=== PATIENT | female | born 1950 | race Caucasian/White ===

== ENCOUNTER 2020-06-10 09:17 | Inpatient (IN) | payer OTHER, MEDICARE ==
[~2020-06-10] VITALS: Ht 170.2 cm; Wt 77.1 kg
[2020-06-10 11:13] LABS: HEMOGLOBIN 15.7 gm/dl (12.3-15.3); RED BLOOD COUNT 5.04 M/UL (4.00-5.10); WHITE BLOOD COUNT 17.3 K/UL (4.5-11.0)
[2020-06-10 11:38] LABS: BUN/CREATININE RATIO 28 (0-10)
[2020-06-10] MEDS ORDERED: ELIQUIS5 MG PO (13:49)
[2020-06-10] MEDS ORDERED: CRESTOR5 MG PO (13:49)
[2020-06-10] MEDS ORDERED: AMBIEN CR12.5 MG PO (13:50)
[2020-06-10] MEDS ORDERED: HYDROCODON-ACE1 EAC1 PO (13:50)
[2020-06-10] MEDS ORDERED: PROZAC20 MG PO (13:51)
[2020-06-10] MEDS ORDERED: ZANAFLEX4 M1 PO (13:57)
[2020-06-11 05:34] LABS: HEMOGLOBIN 14.4 gm/dl (12.3-15.3); RED BLOOD COUNT 4.69 M/UL (4.00-5.10); WHITE BLOOD COUNT 15.5 K/UL (4.5-11.0)
[2020-06-11 05:56] LABS: BUN/CREATININE RATIO 35 (0-10)
[2020-06-12 06:18] LABS: HEMOGLOBIN 15.1 gm/dl (12.3-15.3); RED BLOOD COUNT 4.89 M/UL (4.00-5.10)
[2020-06-12 06:33] LABS: WHITE BLOOD COUNT 10.9 K/UL (4.5-11.0)
[2020-06-12 06:35] LABS: BUN/CREATININE RATIO 36 (0-10)
[2020-06-13 05:03] LABS: HEMOGLOBIN 15.2 gm/dl (12.3-15.3)
[2020-06-13 05:08] LABS: WHITE BLOOD COUNT 17.3 K/UL (4.5-11.0)
[2020-06-13 05:35] LABS: BUN/CREATININE RATIO 41 (0-10)
[2020-06-14 06:17] LABS: HEMOGLOBIN 14.4 gm/dl (12.3-15.3); RED BLOOD COUNT 4.74 M/UL (4.00-5.10)
[2020-06-14 06:50] LABS: BUN/CREATININE RATIO 38 (0-10)
[2020-06-15 05:34] LABS: HEMOGLOBIN 14.4 gm/dl (12.3-15.3); RED BLOOD COUNT 4.79 M/UL (4.00-5.10); WHITE BLOOD COUNT 17.2 K/UL (4.5-11.0)
[2020-06-15 05:53] LABS: BUN/CREATININE RATIO 33 (0-10)
[2020-06-16 05:19] LABS: HEMOGLOBIN 13.5 gm/dl (12.3-15.3); RED BLOOD COUNT 4.51 M/UL (4.00-5.10)
[2020-06-16 05:33] LABS: BUN/CREATININE RATIO 45 (0-10)
[2020-06-16] MEDS ORDERED: DECADRON6 MG PO (10:31)
[2020-06-16] MEDS ORDERED: IPRAT-ALBUT 0.5-3 ML NEB (10:31)
[2020-06-16] MEDS ORDERED: TESSALON PERLE100 MG PO (10:31)
[2020-06-16] MEDS ORDERED: ZITHROMAX250 MG PO (10:31)
== END 2020-06-16 16:53 | disposition home or self-care (01) | DRG 177 ==
LOC: ER1 09:17 → CDU 12:05 → MED SURG 4 12:05
PROVIDERS: Internal Medicine Infectious Disease; Physician Assistant; ADMIT Internal Medicine
PROC: XW033E5 Introduction of Remdesivir Anti-infective into Peripheral Vein, Percutaneous Approach, New Technology Group 5 (ICD-10-PCS; principal; 2020-06-10)
PROC: 8E0ZXY6 Isolation (ICD-10-PCS; 2020-06-10)
PROC: XW13325 Transfusion of Convalescent Plasma (Nonautologous) into Peripheral Vein, Percutaneous Approach, New Technology Group 5 (ICD-10-PCS; 2020-06-14)
DX: U07.1 COVID-19 (principal); J12.82 Pneumonia due to coronavirus disease 2019; J96.01 Acute respiratory failure with hypoxia; J15.9 Unspecified bacterial pneumonia; E87.2 Acidosis; Z86.711 Personal history of pulmonary embolism; Z86.718 Personal history of other venous thrombosis and embolism; Z90.49 Acquired absence of other specified parts of digestive tract; Z82.49 Family history of ischemic heart disease and other diseases of the circulatory system; Z80.0 Family history of malignant neoplasm of digestive organs; Z79.01 Long term (current) use of anticoagulants; Z79.899 Other long term (current) drug therapy; E86.0 Dehydration
CPT/HCPCS: 36415; 36600; 71045; 80048; 80053; 82550; 82553; 82803; 83605; 83874; 84484; 85025; 85027; 85610; 86900; 86901; 86927; 87040; 94640; 94760; 96365; 96368; 99285; J0456; J0696; J1100; J1335; J7030; U0002

== ENCOUNTER → 2020-10-04 | Outpatient (CLI) | payer OTHER ==
[~2020-10-04] MED LIST: AMBIEN CR12.5 MG PO; CRESTOR5 MG PO; DECADRON6 MG PO; ELIQUIS5 MG PO; HYDROCODON-ACE1 EAC1 PO; IPRAT-ALBUT 0.5-3 ML NEB; PROZAC20 MG PO; TESSALON PERLE100 MG PO; ZANAFLEX4 M1 PO; ZITHROMAX250 MG PO
== END ==
LOC: EXRD 08:53
DX: R60.9 Edema, unspecified (principal); M79.606 Pain in leg, unspecified
CPT/HCPCS: 93971

== ENCOUNTER → 2021-07-03 | Outpatient (CLI) | payer MEDICARE, OTHER | LOC: KOH-I 15:13 | DX: R07.81 Pleurodynia (principal) | CPT/HCPCS: 71111 ==

== ENCOUNTER → 2022-01-23 | Outpatient (CLI) | payer MEDICARE | LOC: KOH-I 11:44 | DX: R07.81 Pleurodynia (principal); S29.9XXA Unspecified injury of thorax, initial encounter; S22.31XA Fracture of one rib, right side, initial encounter for closed fracture; S22.009A Unspecified fracture of unspecified thoracic vertebra, initial encounter for closed fracture | CPT/HCPCS: 71045; 71101 ==